=== PATIENT | female | born 1945 | race Caucasian/White ===

== ENCOUNTER 2017-09-18 16:02 | Emergency (ER) | payer MEDICARE ==
[~2017-09-18] VITALS: Ht 160 cm; Wt 70.0 kg
[2017-09-18 16:04] VITALS: BP 132/82; PULSE 97; RESP 14; TEMP 98.3; O2SAT 97
[2017-09-18] MEDS ORDERED: SODIUM CHLORIDE 0.9% FLUSH 10 ML FLUSH IV FLUSH PRN (18:15)
[2017-09-18] MEDS ORDERED: ONDANSETRON HCL 4 MG/2 ML VIAL IVP ONE (18:15)
[2017-09-18 18:23] VITALS: BP 131/77; PULSE 75; RESP 14; O2SAT 98
[2017-09-18] MEDS ORDERED: LOSA50TA PO (18:24)
[2017-09-18] MEDS ORDERED: METO25TA3 PO (18:24)
[2017-09-18] MEDS ORDERED: SIMV40TA PO (18:24)
[2017-09-18] MEDS: SODIUM CHLOR 0.9% 1000 ML INJ 1,000 ML IV SCH ×2 (18:29→19:59)
[2017-09-18 18:48] LABS: HEMATOCRIT 37.9 % (35.0-46.0); HEMOGLOBIN 13.2 GM/DL (11.6-15.3); MEAN CELL VOLUME 87.5 FL (80.0-100.0); MEAN CORPUSCULAR HEMOGLOBIN 30.5 PG (27.0-34.0); MEAN CORPUSCULAR HGB CONC 34.9 % (32.0-36.0); MEAN PLATELET VOLUME 9.5 FL (7.0-11.0); PLATELET COUNT 199 TH/MM3 (150-450); RED BLOOD COUNT 4.33 MIL/MM3 (4.00-5.30); RED CELL DISTRIBUTION WIDTH 13.4 % (11.6-17.2); WHITE BLOOD COUNT 5.8 TH/MM3 (4.0-11.0)
[2017-09-18 19:04] LABS: BICARBONATE 25.8 MEQ/L (21.0-32.0); CALCIUM 9.7 MG/DL (8.5-10.1); CREATININE 0.75 MG/DL (0.50-1.00)
--- NOTE | 2017-09-18 19:09 | RADRPT ---
EXAM DATE/TIME: 09/18/2017 18:45 [facility] COMPARISON: No previous studies available for comparison. INDICATIONS : Cough, short of breath. MEDICAL HISTORY : None. SURGICAL HISTORY : None. ENCOUNTER: Initial ACUITY: 1 day PAIN SCORE: 0/10 LOCATION: Bilateral chest FINDINGS: PA and lateral views of the chest demonstrate the lungs to be symmetrically aerated without evidence of mass, infiltrate or effusion. The cardiomediastinal contours are unremarkable. Osseous structure s are intact. CONCLUSION: No evidence of acute cardiopulmonary disease. Aman Morales MD on September 18, 2017 at 19:04 Board Certified Radiologist. This report was verified electronically.
[2017-09-18] MEDS ORDERED: IOHEXOL 350 MG/ML 10 ML VIAL (for RAD DIAG) IVCONTRAST ONE (19:30)
[2017-09-18 19:32] LABS: LYMPHOCYTES 14 % (9-44); MONOCYTES 5 % (0-8); NEUTROPHIL # MANUAL DIFF 4.6 TH/MM3 (1.8-7.7); POLYS (SEG NEUTROPHILS) 80 % (16-70)
--- NOTE | 2017-09-18 19:49 | PD ---
HPI . Abdominal pain and nausea Chief Complaint: GI Complaint Time Seen by Provider: 18:14 Travel History International Travel<30 days: No Contact w/Intl Traveler<30days: No Traveled to known affect area: No History of Present Illness HPI This patient presents complaining with abdominal pain associated with nausea. She is also complaining with a rapid heart rate. Onset of symptoms was last night. She has had no vomiting. She reports 2 loose stools. She denies any urinary tract symptoms. He is not having a cough, shortness of breath or fever. She states that she has a history of previous pneumonia and previous diverticulitis. She is concerned about both of these. [facility] Past Medical History High Cholesterol: Yes Hypertension: Yes Past Surgical History Cholecystectomy: Yes Other Surgery: Yes ('LEFT ANKLY SURGERY") Social History Alcohol Use: Yes ("VERY RARELY') Tobacco Use: No Substance Use: No Allergies-Medications (Allergen,Severity, Reaction): Coded Allergies: levofloxacin (Unverified Adverse Reaction, Intermediate, Joint Pain, ) Reported Meds & Prescriptions Reported Meds & Active Scripts Active Reported Simvastatin 40 Mg Tab 40 Mg PO HS Losartan (Losartan Potassium) 50 Mg Tab 50 Mg PO DAILY Metoprolol Tartrate 25 Mg Tab 25 Mg PO BID Review of Systems Except as stated in HPI: all other systems reviewed are Neg General / Constitutional: No: Fever, Chills Cardiovascular: No: Chest Pain or Discomfort Respiratory: No: Cough, Shortness of Breath Gastrointestinal: Positive: Nausea, Abdominal Pain, No: Vomiting Genitourinary: No: Urgency, Frequency, Dysuria Physical Exam Narrative GENERAL: This patient does not appear ill. SKIN: warm/dry. Good color and turgor. HEAD: Normocephalic. Atraumatic. EYES: Pupils equal and round. No scleral icterus. No injection or drainage. ENT: No nasal bleeding or discharge. Mucous membranes pink and moist. NECK: Trachea midline. Full range of motion without pain.. CARDIOVASCULAR: Regular rate and rhythm. Heart sounds normal. RESPIRATORY: No accessory muscle use. Clear to auscultation. Breath sounds equal bilaterally. GASTROINTESTINAL: Abdomen soft. Minimal tenderness without guarding or rebound. Bowel sounds present. Nondistended. MUSCULOSKELETAL: No obvious deformities. NEUROLOGICAL: Awake and alert. No obvious cranial nerve deficits. Motor grossly within normal limits. Normal speech. PSYCHIATRIC: Appropriate mood and affect; insight and judgment normal. Data Data Last Documented VS Vital Signs Date Time Temp Pulse Resp B/P (MAP) Pulse Ox O2 Delivery O2 Flow Rate FiO2 09/18/17 18:23 75 14 131/77 (95) 98 Room Air 09/18/17 16:04 98.3 Orders Orders Basic Metabolic Panel (Bmp) (09/18/17 18:14) Complete Blood Count With Diff (09/18/17 18:14) Urinalysis - C+S If Indicated (09/18/17 18:14) Iv Access Insert/Monitor (09/18/17 18:14) Ecg Monitoring (09/18/17 18:14) Oximetry (09/18/17 18:14) Ondansetron Inj (Zofran Inj) (09/18/17 18:15) Sodium Chlor 0.9% 1000 Ml Inj (Ns 1000 M (09/18/17 18:14) Sodium Chloride 0.9% Flush (Ns Flush) (09/18/17 18:15) Chest, Pa & Lat (09/18/17 18:21) Ct Abd/Pel W Iv Contrast(Rout) (09/18/17 18:21) Iohexol 350 Inj (Omnipaque 350 Inj) (09/18/17 19:30) Labs Laboratory Tests Test 09/18/17 18:30 White Blood Count 5.8 TH/MM3 Red Blood Count 4.33 MIL/MM3 Hemoglobin 13.2 GM/DL Hematocrit 37.9 % Mean Corpuscular Volume 87.5 FL Mean Corpuscular Hemoglobin 30.5 PG Mean Corpuscular Hemoglobin Concent 34.9 % Red Cell Distribution Width 13.4 % Platelet Count 199 TH/MM3 Mean Platelet Volume 9.5 FL CBC Comment AUTO DIFF Differential Total Cells Counted 100 Neutrophils % (Manual) 80 % Lymphocytes % 14 % Monocytes % 5 % Eosinophils % 1 % Neutrophils # (Manual) 4.6 TH/MM3 Differential Comment FINAL DIFF MANUAL Blood Urea Nitrogen 9 MG/DL Creatinine 0.75 MG/DL Random Glucose 115 MG/DL Calcium Level 9.7 MG/DL Sodium Level 132 MEQ/L Potassium Level 4.2 MEQ/L Chloride Level 99 MEQ/L Carbon Dioxide Level 25.8 MEQ/L Anion Gap 7 MEQ/L Estimat Glomerular Filtration Rate 76 ML/MIN MDM Medical Decision Making Medical Screen Exam Complete: Yes Emergency Medical Condition: Yes Medical Record Reviewed: Yes (this patient has no old records here.) Differential Diagnosis Differential diagnosis of abdominal pain includes but is not limited to gastritis, pancreatitis, hepatitis, gastroenteritis, gallbladder disease, constipation, urinary retention, UTI, peptic ulcer disease, diverticulitis or appendicitis Narrative Course This patient presents complaining with abdominal pain associated with nausea. She is concerned about possible diverticulitis or pneumonia. CBC & BMP Diagram 09/18/17 18:30 Calcium Level 9.7 Last Impressions Chest X-Ray 09/18/17 1821 Signed Impressions: Service Date/Time: Monday, September 18, 2017 18:45 - CONCLUSION: No evidence of acute cardiopulmonary disease. Aman Morales MD The chest x-ray was independently viewed by me. She has been treated with IV fluids and IV Zofran. Her care is being turned over to the oncoming provider at 7 PM pending the results of her CT and her UA. She is probably stable for discharge. Diagnosis Primary Impression: Abdominal pain Qualified Codes: R10.84 - Generalized abdominal pain Additional Impression: Nausea Condition: Stable Daniela Westbrook MD Sep 18, 2017 19:49
--- NOTE | 2017-09-18 19:49 | RADRPT ---
EXAM DATE/TIME: 09/18/2017 19:19 [facility] COMPARISON: No previous studies available for comparison. INDICATIONS : Lower abdomen pain for three days. IV CONTRAST: 72 cc Omnipaque 350 (iohexol) IV ORAL CONTRAST: No oral contrast ingested. RADIATION DOSE: 6.64 CTDIvol (mGy) MEDICAL HISTORY : Hypertension. SURGICAL HISTORY : Cholecystectomy. ENCOUNTER: Initial ACUITY: 3 days PAIN SCALE: 4/10 LOCATION: Bilateral lower quadrant TECHNIQUE: Volumetric scanning of the abdomen and pelvis was performed. Using automated exposure control and ad justment of the mA and/or kV according to patient size, radiation dose was kept as low as reasonably achievable to obtain optimal diagnostic quality images. DICOM format image data is available electro nically for review and comparison. FINDINGS: LOWER LUNGS: Trace right base atelectasis and/or scarring. LIVER: Homogeneous density without lesion. Incidentally seen prominent invagination of a diaphragmatic slip on the posterolateral liver contour. There is no dilation of the biliary tree. Previous cholecystect stefano. SPLEEN: Normal size without lesion. PANCREAS: Within normal limits. KIDNEYS: Patchy cortical thinning/scarring of both kidneys, right worse than left. There are a few scattered s mall cysts measuring up to 2.4 cm in size. No hydronephrosis. ADRENAL GLANDS: Within normal limits. VASCULAR: There is no aortic aneurysm. BOWEL/MESENTERY: There is moderate diverticulosis of the sigmoid colon and with mild acute inflammatory changes. There is proximal to mid sigmoid colon wall thickening, presumably chronic diverticular disease related. N o abscess, perforation or obstruction. The appendix is normal. There is a small hiatal hernia. ABDOMINAL WALL: Within normal limits. RETROPERITONEUM: There is no lymphadenopathy. BLADDER: No wall thickening or mass. REPRODUCTIVE: Within normal limits. INGUINAL: There is no lymphadenopathy or hernia. MUSCULOSKELETAL: No acute bony abnormality demonstrated. CONCLUSION: 1. Mild uncomplicated acute diverticulitis of the sigmoid colon superimposed on chronic diverticular disease. 2. Patchy cortical thinning/scarring and a few scattered benign cysts of both kidneys. 3. Normal appendix. 4. Previous cholecystectomy. 5. Trace atelectasis and/or scarring of the right lung base. 6. Small hiatal hernia. Aman Morales MD on September 18, 2017 at 19:43 Board Certified Radiologist. This report was verified electronically.
[2017-09-18] MEDS ORDERED: ZOFR4TAB PO (19:57)
[2017-09-18] MEDS ORDERED: METR-1 PO (19:57)
[2017-09-18] MEDS ORDERED: BACT800T5 PO (19:57)
[2017-09-18] MEDS ORDERED: SULFAMETHOXAZOLE-TRIMETHOPRIM DS 800-160 MG TAB PO ONE (20:00)
[2017-09-18] MEDS ORDERED: CIPROFLOXACIN 400 MG PREMIX 200 ML IV ONE (20:00)
[2017-09-18] MEDS ORDERED: metroNIDAZOLE 500 MG INJ 100 ML IV ONE (20:00)
== END 2017-09-18 20:27 | disposition home or self-care (01) ==
LOC: NEPE 16:02
DX: R10.84 Generalized abdominal pain (principal); R11.0 Nausea; K57.32 Diverticulitis of large intestine without perforation or abscess without bleeding; K44.9 Diaphragmatic hernia without obstruction or gangrene; E78.00 Pure hypercholesterolemia, unspecified; I10 Essential (primary) hypertension; Z90.49 Acquired absence of other specified parts of digestive tract
CPT/HCPCS: 71046; 74177; 80048; 85007; 85027; 96361; 96374; 96375; 99285; J2405; J7030; Q9967